=== PATIENT | female | born 1975 | race Asian ===

== ENCOUNTER 2018-01-15 00:36 | Inpatient (IN) | payer SELFPAY ==
[~2018-01-15] VITALS: Ht 169 cm; Wt 66.0 kg
[2018-01-15] MEDS ORDERED: OXYTOCIN 20 UNITS in LACTATED RINGERS 1,000 ML IV SCH (00:53)
[2018-01-15] MEDS ORDERED: NALBUPHINE 10 MG/ML AMP IVP PRN (00:55)
[2018-01-15] MEDS ORDERED: METHYLERGONOVINE 0.2 MG/ML AMP IM PRN ×2 (00:55→19:55)
[2018-01-15] MEDS ORDERED: PROMETHAZINE 25 MG/ML VIAL IVP PRN (00:55)
[2018-01-15] MEDS ORDERED: OXYTOCIN 10 UNITS/ML VIAL IM ONE (00:55)
[2018-01-15] MEDS ORDERED: CARBOPROST 250 MCG/ML AMP IM PRN (00:55)
[2018-01-15 01:23] LABS: HEMATOCRIT 37.3 % (36-48); HEMOGLOBIN 12.6 g/dL (12.0-16.0); MEAN CORPUSCULAR HEMOGLOBIN 33 pg (27-31); MEAN CORPUSCULAR HGB CONC 34 g/dL (33-37); MEAN CORPUSCULAR VOLUME 96.7 fL (80-94); PLATELET COUNT (AUTO) 167 K/uL (140-450); RED BLOOD CELL COUNT(AUTO) 3.86 MIL/uL (4.20-5.40); RED CELL DISTRIBUTION WIDTH 13.3 % (11.6-13.7); WHITE BLOOD COUNT (AUTO) 11.7 K/uL (4.8-10.8)
[2018-01-15 01:25] VITALS: BP 105/58
[2018-01-15 01:31] LABS: APPEARANCE,URINE CLEAR (CLEAR); BILIRUBIN,URINE NEGATIVE (NEGATIVE); BLOOD, URINE NEGATIVE (NEGATIVE); COLOR,URINE YELLOW (YELLOW); LEUKOCYTE ESTERASE ,URINE NEGATIVE (NEGATIVE); NITRITE, URINE NEGATIVE (NEGATIVE); UGLUCOSE NEGATIVE (NEGATIVE)
[2018-01-15 01:47] LABS: EOSINOPHILS % (MANUAL) 1 % (0-4); LYMPHOCYTES % (MANUAL) 20 % (20-46); MONOCYTES % (MANUAL) 5 % (5-12)
[2018-01-15] MEDS ORDERED: MISOPROSTOL 25 MCG TAB VG PRN (02:15)
[2018-01-15] MEDS ORDERED: MISOPROSTOL 25 MCG TAB ONE (02:19)
[2018-01-15] MEDS: LACTATED RINGERS 1,000 ML IV SCH ×4 (02:33→17:26)
[2018-01-15] MEDS ORDERED: OXYTOCIN 20 UNITS/LR PREMIX 1,000 ML IV ONE (05:28)
--- NOTE | 2018-01-15 08:42 | NUR ---
PATIENT HAS BEEN SCREENED AND CATEGORIZED LOW NUTRITION RISK. PATIENT WILL BE SEEN WITHIN 7 DAYS OF ADMISSION. 01/21/[address]
[2018-01-15 12:42] LABS: RAPID PLASMA REAGIN NON-REACTIVE (Non Reactiv)
[2018-01-15] MEDS ORDERED: PROMETHAZINE 25 MG/ML VIAL ONE (16:08)
[2018-01-15] MEDS ORDERED: NALBUPHINE 10 MG/ML AMP ONE (16:08)
[2018-01-15] MEDS ORDERED: BUPIVACAINE 0.125%/NS PREMIX 250 ML ONE (16:43)
[2018-01-15] MEDS ORDERED: OXYTOCIN 10 UNITS/ML VIAL ONE (17:53)
[2018-01-15] MEDS ORDERED: NALOXONE 0.4 MG/ML VIAL ONE (18:10)
[2018-01-15] MEDS ORDERED: TEMAZEPAM 15 MG CAP PO PRN (19:55)
[2018-01-15] MEDS ORDERED: oxyCODONE/APAP 5/325 MG 1 TAB TAB PO PRN (19:55)
[2018-01-15] MEDS ORDERED: HYDROcodone/APAP 5/325 MG 1 TAB TAB PO PRN (19:55)
[2018-01-15] MEDS ORDERED: BENZOCAINE/MENTHOL 20%-0.5% 60 GM CAN TP PRN (19:55)
[2018-01-15] MEDS ORDERED: MEASLES, MUMPS, AND RUBELLA 1 VIAL SQVAC PRN (19:55)
[2018-01-15] MEDS ORDERED: OXYTOCIN 10 UNITS/ML VIAL IM PRN (19:55)
[2018-01-15] MEDS ORDERED: DOCUSATE SOD/SENNA 50/8.6 MG 1 TAB PO SCH (21:00)
[2018-01-16] MEDS: IBUPROFEN 800 MG TAB PO PRN ×2 (00:57→20:45)
[2018-01-16 08:28] LABS: HEMATOCRIT 32.3 % (36-48)
== END 2018-01-17 12:15 | disposition home or self-care (01) | DRG 775 ==
LOC: MLD 00:36 → MFCC 23:38
PROVIDERS: ADMIT Obstetrics & Gynecology; ATTEND Obstetrics & Gynecology
PROC: 10E0XZZ Delivery of Products of Conception, External Approach (ICD-10-PCS; principal; 2018-01-15)
PROC: 10907ZC Drainage of Amniotic Fluid, Therapeutic from Products of Conception, Via Natural or Artificial Opening (ICD-10-PCS; 2018-01-15)
PROC: 0HQ9XZZ Repair Perineum Skin, External Approach (ICD-10-PCS; 2018-01-15)
PROC: 00HU33Z Insertion of Infusion Device into Spinal Canal, Percutaneous Approach (ICD-10-PCS; 2018-01-15)
PROC: 3E0R3BZ Introduction of Anesthetic Agent into Spinal Canal, Percutaneous Approach (ICD-10-PCS; 2018-01-15)
PROC: 3E0234Z Introduction of Serum, Toxoid and Vaccine into Muscle, Percutaneous Approach (ICD-10-PCS; 2018-01-16)
DX: O70.0 First degree perineal laceration during delivery (principal); Z37.0 Single live birth; Z3A.39 39 weeks gestation of pregnancy; Z23 Encounter for immunization
CPT/HCPCS: 36415; 51702; 59200; 59409; 81003; 85018; 85025; 86592; 86886; 86900; 86901; 90715; J2300; J2310; J2550; J2590; J3490; J7120